=== PATIENT | male | born 1980 | race African-American/Black ===

== ENCOUNTER → 2017-01-20 | Outpatient (CLI) | payer BC ==
[2017-01-20 15:08] LABS: HEMATOCRIT 43.8 % (37.9-51.0); HEMOGLOBIN 14.2 g/dL (13.5-17.0); HGB HCT DIFFERENCE -1.2; MEAN CORPUSCULAR HGB CONC 32.4 g/dL (32.0-36.0); MEAN CORPUSCULAR VOLUME 71 fl (80-97); RED BLOOD COUNT 6.17 10^6/uL (4.35-5.55); RED CELL DISTRIBUTION WIDTH 15.9 % (11.5-14.0); WHITE BLOOD COUNT 8.7 10^3/uL (4.0-10.5)
[2017-01-20 15:24] LABS: ALANINE AMINOTRANSFERASE 22 U/L (21-72); ALBUMIN 4.5 g/dL (3.5-5.0); ALKALINE PHOSPHATASE 89 U/L (38-126); ANION GAP 13 (5-19); ASPARTATE AMINO TRANSFERASE 19 U/L (17-59); BILIRUBIN,TOTAL 0.3 mg/dL (0.2-1.3); BLOOD UREA NITROGEN 11 mg/dL (7-20); CALCIUM 9.6 mg/dL (8.4-10.2); CARBON DIOXIDE 24 mmol/L (22-30); CHLORIDE 106 mmol/L (98-107); CREATININE RESULT 1.08 mg/dL (0.52-1.25); GLUCOSE 84 mg/dL (75-110); POTASSIUM 4.1 mmol/L (3.6-5.0); SODIUM 143.4 mmol/L (137-145); TOTAL PROTEIN 7.3 g/dL (6.3-8.2); TRIGLYCERIDES 328 mg/dL (<150)
[2017-01-20 15:35] LABS: DIRECT LDL 95 mg/dL (<100)
[2017-01-20 15:53] LABS: THYROID STIMULATING HORMONE 0.96 uIU/mL (0.47-4.68)
== END ==
LOC: LAB 14:49
PROVIDERS: ATTEND Psychiatry & Neurology Psychiatry
DX: F31.4 Bipolar disorder, current episode depressed, severe, without psychotic features (principal); Z79.899 Other long term (current) drug therapy
CPT/HCPCS: 36415; 80048; 80076; 82465; 83036; 83721; 84439; 84443; 84478; 85027

== ENCOUNTER 2017-02-02 11:16 | Emergency (ER) | payer BC ==
[2017-02-02 11:55] VITALS: BP 159/103
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
== END 2017-02-02 14:30 | disposition left against medical advice (07) ==
LOC: ER 11:16
DX: Z53.9 Procedure and treatment not carried out, unspecified reason (principal); R21 Rash and other nonspecific skin eruption
CPT/HCPCS: 99281

== ENCOUNTER 2017-08-12 11:19 | Emergency (ER) | payer BC ==
[2017-08-12 11:26] VITALS: BP 144/90
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
--- NOTE | 2017-08-12 12:10 | RADIOLOGY REPORT (SQ) ---
EXAM DESCRIPTION: HAND RIGHT 3 VIEWS COMPLETED DATE/TIME: 08/12/2017 11:57 am REASON FOR STUDY: punching tree COMPARISON: January 2015 EXAM PARAMETERS: NUMBER OF VIEWS: Three views. TECHNIQUE: AP, lateral and oblique radiographic images acquired of the right hand. LIMITATIONS: None. FINDINGS: MINERALIZATION: Normal. BONES: No acute fracture or dislocation. No worrisome bone lesions. JOINTS: No effusions. SOFT TISSUES: No soft tissue swelling. No foreign body. OTHER: No other significant finding. IMPRESSION: NEGATIVE STUDY OF THE RIGHT HAND. NO RADIOGRAPHIC EVIDENCE OF ACUTE INJURY. TECHNICAL DOCUMENTATION: JOB ID: [id number]- All Rights Reserved
== END 2017-08-12 12:17 | disposition home or self-care (01) ==
LOC: ER 11:19
DX: S60.211A Contusion of right wrist, initial encounter (principal); W22.09XA Striking against other stationary object, initial encounter; Y93.75 Activity, martial arts; Y92.009 Unspecified place in unspecified non-institutional (private) residence as the place of occurrence of the external cause; M25.542 Pain in joints of left hand; M25.541 Pain in joints of right hand; F17.200 Nicotine dependence, unspecified, uncomplicated; I10 Essential (primary) hypertension; E11.9 Type 2 diabetes mellitus without complications
CPT/HCPCS: 99283

== ENCOUNTER 2017-10-05 10:17 | Emergency (ER) | payer BC, MEDICAID ==
[2017-10-05 10:26] VITALS: BP 157/95
[2017-10-05] MEDS ORDERED: NORMAL SALINE 1000 ML 1,000 ML IV ONE (10:43)
[2017-10-05] MEDS ORDERED: ONDANSETRON HCL INJ/PF 4 MG/2 ML SDV IV ONE (10:43)
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
[2017-10-05 11:38] LABS: APPEARANCE,URINE SLIGHTLY-CLOUDY; BILIRUBIN,URINE NEGATIVE (NEGATIVE); GLUCOSE, URINE 50 mg/dL (NEGATIVE); KETONES,URINE 80 mg/dL (NEGATIVE); LEUKOCYTE ESTERASE,URINE NEGATIVE (NEGATIVE); NITRITE,URINE NEGATIVE (NEGATIVE); PROTEIN,URINE 100 mg/dL (NEGATIVE); URINE SPECIFIC GRAVITY 1.035; UROBILINOGEN,URINE NEGATIVE mg/dL (<2.0)
[2017-10-05 11:50] LABS: ABSOLUTE LYMPHOCYTES (AUTO) 1.2 10^3/uL (0.5-4.7); ABSOLUTE MONOCYTES (AUTO) 0.5 10^3/uL (0.1-1.4); ABSOLUTE NEUT (AUTO) 8.1 10^3/uL (1.7-8.2); BASOPHILS % (AUTO) 0.4 % (0-2); EOSINOPHILS % (AUTO) 0.1 % (0-6); HEMATOCRIT 48.1 % (37.9-51.0); HEMOGLOBIN 15.4 g/dL (13.5-17.0); HGB HCT DIFFERENCE -1.9; LYMPHOCYTES % (AUTO) 12.5 % (13-45); MEAN CORPUSCULAR HEMOGLOBIN 22.9 pg (27.0-33.4); MEAN CORPUSCULAR VOLUME 72 fl (80-97); MONOCYTES % (AUTO) 4.7 % (3-13); RED BLOOD COUNT 6.72 10^6/uL (4.35-5.55); RED CELL DISTRIBUTION WIDTH 16.5 % (11.5-14.0); SEGMENTED NEUTROPHILS % (AUTO) 82.3 % (42-78); WHITE BLOOD COUNT 9.8 10^3/uL (4.0-10.5)
[2017-10-05 12:27] LABS: ALANINE AMINOTRANSFERASE 29 U/L (21-72); ALBUMIN 5.2 g/dL (3.5-5.0); ALKALINE PHOSPHATASE 107 U/L (38-126); ANION GAP 15 (5-19); ASPARTATE AMINO TRANSFERASE 30 U/L (17-59); BILIRUBIN,DIRECT 0.6 mg/dL (0.0-0.4); BILIRUBIN,TOTAL 0.8 mg/dL (0.2-1.3); BLOOD UREA NITROGEN 15 mg/dL (7-20); CALCIUM 9.8 mg/dL (8.4-10.2); CARBON DIOXIDE 26 mmol/L (22-30); CHLORIDE 103 mmol/L (98-107); CREATININE RESULT 1.03 mg/dL (0.52-1.25); GLUCOSE 138 mg/dL (75-110); LIPASE 365.9 U/L (23-300); SODIUM 144.4 mmol/L (137-145); TOTAL PROTEIN 8.3 g/dL (6.3-8.2)
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
== END 2017-10-05 13:17 | disposition home or self-care (01) ==
LOC: ER 10:17
DX: A04.72 Enterocolitis due to Clostridium difficile, not specified as recurrent (principal); R11.2 Nausea with vomiting, unspecified; R39.198 Other difficulties with micturition; R31.9 Hematuria, unspecified; Z79.899 Other long term (current) drug therapy
CPT/HCPCS: 99283; 96361; 96374; 36415; 87045; 89055; 87205; 83690; 85025; 82272; 80053; 81001; 87493; J2405; J7030

== ENCOUNTER 2017-10-14 08:57 | Emergency (ER) | payer MEDICAID ==
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
[2017-10-14] MEDS ORDERED: MAG HYDROX/AL HYDROX/SIMETH SUSP 30 ML UDCUP PO ONE (10:15)
[2017-10-14] MEDS ORDERED: LIDOCAINE 2% VISCOUS SOLN 20 ML UDCUP PO ONE (10:15)
[2017-10-14] MEDS ORDERED: METOCLOPRAMIDE HCL ORAL SOLN 10 MG/10 ML UDCUP PO ONE (10:15)
[2017-10-14 10:50] LABS: ABSOLUTE LYMPHOCYTES (AUTO) 2.4 10^3/uL (0.5-4.7); ABSOLUTE MONOCYTES (AUTO) 0.8 10^3/uL (0.1-1.4); BASOPHILS % (AUTO) 0.2 % (0-2); EOSINOPHILS % (AUTO) 0.3 % (0-6); HEMATOCRIT 47.9 % (37.9-51.0); HEMOGLOBIN 15.5 g/dL (13.5-17.0); HGB HCT DIFFERENCE -1.4; LYMPHOCYTES % (AUTO) 23.3 % (13-45); MEAN CORPUSCULAR HEMOGLOBIN 23.2 pg (27.0-33.4); MEAN CORPUSCULAR HGB CONC 32.3 g/dL (32.0-36.0); MEAN CORPUSCULAR VOLUME 72 fl (80-97); RED BLOOD COUNT 6.66 10^6/uL (4.35-5.55); RED CELL DISTRIBUTION WIDTH 15.3 % (11.5-14.0); SEGMENTED NEUTROPHILS % (AUTO) 68.2 % (42-78); WHITE BLOOD COUNT 10.3 10^3/uL (4.0-10.5)
[2017-10-14 10:51] LABS: APPEARANCE,URINE SLIGHTLY-CLOUDY; BILIRUBIN,URINE NEGATIVE (NEGATIVE); GLUCOSE, URINE NEGATIVE (NEGATIVE); KETONES,URINE 80 mg/dL (NEGATIVE); LEUKOCYTE ESTERASE,URINE NEGATIVE (NEGATIVE); NITRITE,URINE NEGATIVE (NEGATIVE); PROTEIN,URINE 30 mg/dL (NEGATIVE); URINE SPECIFIC GRAVITY 1.032
[2017-10-14 11:15] LABS: ALANINE AMINOTRANSFERASE 34 U/L (21-72); ALKALINE PHOSPHATASE 84 U/L (38-126); ANION GAP 17 (5-19); ASPARTATE AMINO TRANSFERASE 25 U/L (17-59); BILIRUBIN,DIRECT 0.4 mg/dL (0.0-0.4); BLOOD UREA NITROGEN 14 mg/dL (7-20); CARBON DIOXIDE 27 mmol/L (22-30); CHLORIDE 97 mmol/L (98-107); CREATININE RESULT 0.99 mg/dL (0.52-1.25); GLUCOSE 93 mg/dL (75-110); LIPASE 58.5 U/L (23-300); POTASSIUM 3.8 mmol/L (3.6-5.0); SODIUM 140.5 mmol/L (137-145); TOTAL PROTEIN 7.4 g/dL (6.3-8.2)
[2017-10-14 11:42] VITALS: BP 148/92
--- NOTE | 2017-10-14 13:20 | EKG REPORT ---
SEVERITY:- NORMAL ECG - SINUS RHYTHM : Confirmed by: Edvin Guzman MD 14-Oct-2017 13:19:49
== END 2017-10-14 11:40 | disposition home or self-care (01) ==
LOC: ER 08:57
DX: R10.13 Epigastric pain (principal); R19.7 Diarrhea, unspecified; M79.1 Myalgia; R20.2 Paresthesia of skin; R61 Generalized hyperhidrosis; M54.5 Low back pain; G89.29 Other chronic pain; R07.89 Other chest pain; I10 Essential (primary) hypertension; R68.83 Chills (without fever); R11.0 Nausea; Z91.013 Allergy to seafood
CPT/HCPCS: 93005; 99283; 36415; 83690; 85025; 80053; 81001; 93010; J3490 ×3

== ENCOUNTER 2017-11-21 08:54 | Inpatient (IN) | payer MEDICAID ==
[2017-11-21] MEDS ORDERED: NORMAL SALINE 1000 ML 1,000 ML IV ONE ×2 (09:26→11:12)
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
[2017-11-21] MEDS ORDERED: ACETAMINOPHEN 325 MG TABLET PO ONE (09:58)
[2017-11-21 10:16] LABS: ABSOLUTE BASOPHILS # (AUTO) 0.1 10^3/uL (0.0-0.2); ABSOLUTE MONOCYTES (AUTO) 1.1 10^3/uL (0.1-1.4); ABSOLUTE NEUT (AUTO) 15.4 10^3/uL (1.7-8.2); BASOPHILS % (AUTO) 0.5 % (0-2); HEMATOCRIT 45.4 % (37.9-51.0); HEMOGLOBIN 14.5 g/dL (13.5-17.0); LYMPHOCYTES % (AUTO) 5.7 % (13-45); MEAN CORPUSCULAR HEMOGLOBIN 23.2 pg (27.0-33.4); MEAN CORPUSCULAR HGB CONC 31.9 g/dL (32.0-36.0); MEAN CORPUSCULAR VOLUME 73 fl (80-97); MONOCYTES % (AUTO) 6.1 % (3-13); PLATELET COUNT 188 10^3/uL (150-450); RED BLOOD COUNT 6.23 10^6/uL (4.35-5.55); SEGMENTED NEUTROPHILS % (AUTO) 87.7 % (42-78); TOTAL CELLS COUNTED % (AUTO) 100 %; WHITE BLOOD COUNT 17.6 10^3/uL (4.0-10.5)
[2017-11-21 10:17] LABS: INTERNATIONAL RATION (INR) 0.97; PROTHROMBIN TIME 13.6 SEC (11.4-15.4)
[2017-11-21 10:18] LABS: PARTIAL THROMBOPLASTIN TIME 37.2 SEC (23.5-35.8)
[2017-11-21 10:29] LABS: ALANINE AMINOTRANSFERASE 21 U/L (21-72); ALBUMIN 4.5 g/dL (3.5-5.0); ALKALINE PHOSPHATASE 75 U/L (38-126); ANION GAP 13 (5-19); ASPARTATE AMINO TRANSFERASE 19 U/L (17-59); BILIRUBIN,DIRECT 0.3 mg/dL (0.0-0.4); BILIRUBIN,TOTAL 0.7 mg/dL (0.2-1.3); BLOOD UREA NITROGEN 9 mg/dL (7-20); CALCIUM 9.2 mg/dL (8.4-10.2); CARBON DIOXIDE 22 mmol/L (22-30); CHLORIDE 104 mmol/L (98-107); GLUCOSE 87 mg/dL (75-110); LIPASE 19.6 U/L (23-300); POTASSIUM 3.8 mmol/L (3.6-5.0); SODIUM 139.3 mmol/L (137-145)
[2017-11-21 11:09] LABS: APPEARANCE,URINE CLEAR; BILIRUBIN,URINE NEGATIVE (NEGATIVE); COLOR,URINE YELLOW; GLUCOSE, URINE NEGATIVE (NEGATIVE); KETONES,URINE 80 mg/dL (NEGATIVE); LEUKOCYTE ESTERASE,URINE TRACE (NEGATIVE); NITRITE,URINE NEGATIVE (NEGATIVE); PROTEIN,URINE 100 mg/dL (NEGATIVE); URINE SPECIFIC GRAVITY 1.028
--- NOTE | 2017-11-21 12:09 | RADIOLOGY REPORT (SQ) ---
EXAM DESCRIPTION: CT ABD/PELVIS WITH IV ONLY COMPLETED DATE/TIME: 11/21/2017 11:56 am REASON FOR STUDY: abd/flank pain, diarrhea COMPARISON: 07/07/2015 TECHNIQUE: CT scan of the abdomen and pelvis performed using helical scanning technique with dynamic intravenous contrast injection. No oral contrast. Images reviewed with lung, soft tissue, and bone windows. Reconstructed coronal and sagittal MPR images reviewed. Delayed images for evaluation of the urinary system also acquired. All images stored on PACS. All CT scanners at this facility use dose modulation, iterative reconstruction, and/or weight based d osing when appropriate to reduce radiation dose to as low as reasonably achievable (ALARA). [facility]: Dose Right [facility]: CareDose [facility]: Dose Right [facility]: Teradose 4D [facility]: [employer] CONTRAST TYPE AND DOSE: contrast/concentration: Isovue 370.00 mg/ml; Total Contrast Delivered: 81.0 ml; Total Saline Delivered: 68.0 ml RENAL FUNCTION: None required. The patient is less than 50 years old. RADIATION DOSE: CT Rad equipment meets quality standard of care and radiation dose reduction techniq ues were employed. CTDIvol: 5.2 - 6.7 mGy. DLP: 574 mGy-cm.. LIMITATIONS: None. FINDINGS: LOWER CHEST: No significant findings. No nodules or infiltrates. LIVER: Normal size. No masses. No dilated ducts. SPLEEN: Normal size. No focal lesions. PANCREAS: No masses. No significant calcifications. No adjacent inflammation or peripancreatic fluid collections. Pancreatic duct not dilated. GALLBLADDER: No identified stones by CT criteria. No inflammatory changes to suggest cholecystitis. ADRENAL GLANDS: No significant masses or asymmetry. RIGHT KIDNEY AND URETER: No solid masses. No significant calcifications. No hydronephrosis or hyd roureter. LEFT KIDNEY AND URETER: No solid masses. No significant calcifications. No hydronephrosis or hydr oureter. AORTA AND VESSELS: No aneurysm. No dissection. Renal arteries, SMA, celiac without stenosis. RETROPERITONEUM: No retroperitoneal adenopathy, hemorrhage or masses. BOWEL AND PERITONEAL CAVITY: Diffuse mucosal thickening involving the majority of the colon with asso ciated pericolonic stranding compatible with colitis. Small bowel loops are grossly normal. No obst ruction, pneumatosis, or free air. No abscess. APPENDIX: Normal. PELVIS: No mass. No free fluid. Normal bladder. ABDOMINAL WALL: No masses. No hernias. BONES: No significant or acute findings. OTHER: No other significant finding. IMPRESSION: CT FINDINGS COMPATIBLE WITH PANCOLITIS WHICH MAY BE INFECTIOUS OR INFLAMMATORY. TECHNICAL DOCUMENTATION: JOB ID: [id number] Quality ID # [id number]: Final reports with documentation of one or more dose reduction techniques (e.g., Au tomated exposure control, adjustment of the mA and/or kV according to patient size, use of iterative reconstruction technique) 2010 [employer]- All Rights Reserved
[2017-11-21 12:33] LABS: CHLAM PCR NOT DETECTED (NOT DETECT); GON PCR NOT DETECTED (NOT DETECT)
[2017-11-21] MEDS ORDERED: ONDANSETRON HCL INJ/PF 4 MG/2 ML SDV IV PRN (13:23)
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
[2017-11-21] MEDS: NORMAL SALINE 1000 ML 1,000 ML IV PRN ×2 (14:25→22:56)
[2017-11-21] MEDS: METRONIDAZOLE 500 MG/NS RTU 100 ML IV SCH ×2 (14:26→22:56)
[2017-11-21 14:47] LABS: ANION GAP 14 (5-19); BLOOD UREA NITROGEN 7 mg/dL (7-20); CALCIUM 9.2 mg/dL (8.4-10.2); CARBON DIOXIDE 20 mmol/L (22-30); CHLORIDE 107 mmol/L (98-107); GLUCOSE 83 mg/dL (75-110); POTASSIUM 3.8 mmol/L (3.6-5.0); SODIUM 140.8 mmol/L (137-145)
[2017-11-21] MEDS ORDERED: TAMSULOSIN HCL 0.4 MG CAP.SR.24H PO ONE ×2 (18:06→21:08)
[2017-11-21] MEDS: LACTOBACILLUS ACIDOPHILUS 250 MG TAB PO SCH (18:43)
[2017-11-21] MEDS: TAMSULOSIN HCL 0.4 MG CAP.SR.24H PO SCH (18:43)
[2017-11-21] MEDS: VANCOMYCIN HCL INJ 500 MG VIAL PO SCH ×2 (18:45→23:02)
[2017-11-21] MEDS ORDERED: CLONIDINE HCL 0.1 MG TABLET PO PRN (18:54)
[2017-11-21] MEDS ORDERED: PANTOPRAZOLE SODIUM 40 MG VIAL IV ONE (21:15)
[2017-11-21] MEDS: PANTOPRAZOLE SODIUM 40 MG VIAL IV SCH (22:55)
[2017-11-22] MEDS: VANCOMYCIN HCL INJ 500 MG VIAL PO SCH ×4 (05:35→23:10)
[2017-11-22] MEDS: METRONIDAZOLE 500 MG/NS RTU 100 ML IV SCH ×3 (05:36→22:57)
[2017-11-22 06:08] LABS: ABSOLUTE LYMPHOCYTES (AUTO) 1.2 10^3/uL (0.5-4.7); ABSOLUTE MONOCYTES (AUTO) 0.7 10^3/uL (0.1-1.4); ABSOLUTE NEUT (AUTO) 6.9 10^3/uL (1.7-8.2); BASOPHILS % (AUTO) 0.2 % (0-2); EOSINOPHILS % (AUTO) 0.4 % (0-6); HEMATOCRIT 39.7 % (37.9-51.0); HEMOGLOBIN 12.6 g/dL (13.5-17.0); LYMPHOCYTES % (AUTO) 13.2 % (13-45); MEAN CORPUSCULAR HEMOGLOBIN 23.2 pg (27.0-33.4); MEAN CORPUSCULAR HGB CONC 31.7 g/dL (32.0-36.0); MEAN CORPUSCULAR VOLUME 73 fl (80-97); MONOCYTES % (AUTO) 7.8 % (3-13); PLATELET COUNT 171 10^3/uL (150-450); RED BLOOD COUNT 5.43 10^6/uL (4.35-5.55); RED CELL DISTRIBUTION WIDTH 17.9 % (11.5-14.0); SEGMENTED NEUTROPHILS % (AUTO) 78.4 % (42-78); TOTAL CELLS COUNTED % (AUTO) 100 %; WHITE BLOOD COUNT 8.8 10^3/uL (4.0-10.5)
[2017-11-22 06:41] LABS: PHOSPHORUS 2.7 mg/dL (2.5-4.5)
[2017-11-22] MEDS ORDERED: NORMAL SALINE 1000 ML 1,000 ML IV PRN (08:38)
[2017-11-22] MEDS: PANTOPRAZOLE SODIUM 40 MG VIAL IV SCH ×2 (10:42→22:56)
[2017-11-22] MEDS: LACTOBACILLUS ACIDOPHILUS 250 MG TAB PO SCH ×2 (10:43→18:24)
[2017-11-22] MEDS ORDERED: TAMSULOSIN HCL 0.4 MG CAP.SR.24H PO ONE (18:10)
[2017-11-22] MEDS ORDERED: VANCOMYCIN HCL INJ 500 MG VIAL ONE ×2 (18:11→22:05)
[2017-11-22] MEDS: TAMSULOSIN HCL 0.4 MG CAP.SR.24H PO SCH (18:24)
[2017-11-22] MEDS ORDERED: PANTOPRAZOLE SODIUM 40 MG VIAL IV ONE (22:04)
[2017-11-23] MEDS ORDERED: VANCOMYCIN HCL INJ 500 MG VIAL ONE (05:57)
[2017-11-23] MEDS: METRONIDAZOLE 500 MG/NS RTU 100 ML IV SCH (06:57)
[2017-11-23] MEDS: VANCOMYCIN HCL INJ 500 MG VIAL PO SCH (07:09)
[2017-11-23 09:42] VITALS: BP 144/86
--- NOTE | 2017-11-23 09:49 | PSYCHOLOGICAL NOTE ---
Psych Note - Psych Note Psych Note: Reason for consult: History of Bipolar Disorder/Hearing voices Consents given: Anna, , at bedside Patient stated he has not taken his psychiatric medications since August or September. He indicated he had not filled them due to financial issues and problems with his insurance and Disability. Patient reported he is on Temazepam , Klonopin, Trileptal, Abillify, Benzotropine, Hydroxyzine, Prazosin and Seroquel. Patient reported he smokes marijuana when he has it and more so if he does not have his psychiatric medications. Patient stated he hasnt used marijuana in approximately three weeks. He stated marijuana calms him down and makes the voices get quieter. Patient stated his psychiatric medications make the voices go away for periods of time and make them into a whisper, very faint when he does hear them. Patient stated without his medications he is quick to get angry and will sometimes see things. Patient reported he has an established provider in the community and can return there for further treatment. Patient was alert and oriented to person, place, time and circumstance. Mood was euthymic with congruent affect. Patient denied current suicidal/homicidal ideation, intent or plan. He did not appear to be responding to internal stimuli as evidenced by appropriate eye contact, maintaining conversation and staying on topic. No delusions or psychosis noted. Thought processes were organized and linear. Conversational speech was within normal limits for rate, tone and prosody. Intellectual abilities were estimated in the average range. Insight, judgment and impulse control were fair. 1. 296.7 (F31.9) Bipolar I Disorder, by patient report Impression/Plan: Patient is psychiatrically clear. He does not meet [place] G.S 122C IVC criteria. Patient denied suicidal/homicidal ideation, intent or plan. Patient is not considered a danger to himself or others at this time. No delusions or psychosis were observed, although patient endorses auditory hallucinations. Patient has a support system in place, with his and children with whom he shares a residence. Patient was encouraged to follow up with his established provider in the community, [facility], to restart appropriate medications once he is discharged from the hospital. No medication recommendations are made at this time due to the length of time the patient has been off the medications and the estimated hospital discharge of 24-48 hours. It is recommended that if the patient is not discharged in the estimated timeframe another consult may be ordered for this patient. Consulted with Dr. Crump regarding the care and management of this patient.
--- NOTE | 2017-11-23 13:05 | PDOC PROGRESS REPORT ---
Subjective Progress Note for:: 11/22/17 Subjective:: Patient feeling good today. Patient still having some loose stools but with more formed. Patient would like his diet advanced. Reason For Visit: C DIFF COLITIS,DIARRHEA,LEUKOCYSTOSIS Physical Exam Vital Signs: Selected Entries 11/22/17 08:28 Temperature 98.3 F Temperature Oral Source Pulse Rate 77 Respiratory 18 Rate Blood Pressure 144/90 H Blood Pressure 108 Mean BP Location Right Arm BP Position Supine O2 Sat by Pulse 100 Oximetry Oxygen Delivery Room Air Method General appearance: PRESENT: no acute distress, well-developed, well-nourished Head exam: PRESENT: atraumatic, normocephalic Eye exam: PRESENT: conjunctiva pink, EOMI, PERRLA. ABSENT: scleral icterus Ear exam: PRESENT: normal external ear exam Mouth exam: PRESENT: moist, tongue midline Neck exam: ABSENT: carotid bruit, JVD, lymphadenopathy, thyromegaly Respiratory exam: PRESENT: clear to auscultation ludmila. ABSENT: rales, rhonchi, wheezes Cardiovascular exam: PRESENT: RRR. ABSENT: diastolic murmur, rubs, systolic murmur Pulses: PRESENT: normal dorsalis pedis pul Vascular exam: PRESENT: normal capillary refill GI/Abdominal exam: PRESENT: normal bowel sounds, soft. ABSENT: distended, guarding, mass, organolmegaly, rebound, tenderness Rectal exam: PRESENT: deferred Extremities exam: PRESENT: full ROM. ABSENT: calf tenderness, clubbing, pedal edema Neurological exam: PRESENT: alert, awake, oriented to person, oriented to place , oriented to time, oriented to situation, CN II-XII grossly intact. ABSENT: motor sensory deficit Psychiatric exam: PRESENT: appropriate affect, normal mood. ABSENT: homicidal ideation, suicidal ideation Skin exam: PRESENT: dry, intact, warm. ABSENT: cyanosis, rash Results Laboratory Results: 11/22/17 05:57 11/21/17 14:00 Impressions: Abdomen/Pelvis CT 11/21/17 11:12 IMPRESSION: CT FINDINGS COMPATIBLE WITH PANCOLITIS WHICH MAY BE INFECTIOUS OR INFLAMMATORY. Assessment & Plan - Diagnosis (1) Clostridium difficile diarrhea Is this a current diagnosis for this admission?: Yes Plan: Patient with C. difficile colitis. CT scan showing pancolitis most likely due to C. difficile. Continue Flagyl IV 500 mg 3 times daily along with oral vancomycin 125 p.o. every 6. Continue probiotic. Continue hydration. Patient in contact isolation. (2) Blood in stool Is this a current diagnosis for this admission?: Yes Plan: Likely due to C. difficile colitis with pancolitis. Patient hemoglobin is stable. (3) History of schizophrenia Is this a current diagnosis for this admission?: Yes Plan: She was on multiple medications in the past. Patient states he has not taken them in any medication since August. Patient states he was doing fine until recently where he started hearing voices. Patient evaluated by psychology who recommended not restarting any of the medication. Patient should follow-up with his outside mental health provider prior to resuming any of his medication since he has been off of them for so long. (4) Abdominal pain Qualifiers: Abdominal location: generalized Qualified Code(s): R10.84 - Generalized abdominal pain Plan: Improving. Due to C. difficile colitis. Patient being treated with vancomycin and Flagyl. Also on PPI. (5) Pancolitis Is this a current diagnosis for this admission?: Yes Plan: Due to C. difficile. Patient being treated for his C. difficile. (6) Hematuria Qualifiers: Hematuria type: other microscopic Qualified Code(s): R31.29 - Other microscopic hematuria; R31.2 - Other microscopic hematuria Is this a current diagnosis for this admission?: Yes Plan: Resolved. No growth on urine culture. (7) Leukocytosis Is this a current diagnosis for this admission?: Yes Plan: Resolved. Leukocytosis secondary to C. difficile colitis versus hemoconcentration for dehydration resulting from diarrhea. Continue Flagyl and vancomycin for C. difficile colitis. - Time Time Spent with patient: Less than 15 minutes Anticipated discharge: Home with Homehealth Within: within 24 hours - Inpatient Certification Medical Necessity: Need For IV Fluids, Need for IV Antibiotics
--- NOTE | 2017-11-23 13:10 | PDOC DISCHARGE SUMMARY ---
General - Admit/Disc Date/PCP Admission Date/Primary Care Provider: 11/21/17 13:48 Discharge Date: 11/23/17 - Discharge Diagnosis (1) Clostridium difficile diarrhea Is this a current diagnosis for this admission?: Yes (2) Blood in stool Is this a current diagnosis for this admission?: Yes (3) History of schizophrenia Is this a current diagnosis for this admission?: Yes (5) Pancolitis Is this a current diagnosis for this admission?: Yes (6) Hematuria Is this a current diagnosis for this admission?: Yes (7) Leukocytosis Is this a current diagnosis for this admission?: Yes - Additional Information Resuscitation Status: Full Code Discharge Diet: As Tolerated Discharge Activity: Activity As Tolerated Prescriptions: Metronidazole [Flagyl 500 mg Tablet] 500 mg PO TID #42 tablet Home Medications: Metronidazole [Flagyl 500 mg Tablet] 500 mg PO TID #42 tablet 11/23/17 History of Present Illness History of Present Illness: BONILLA GREY III is a 37 year old male with a history of bipolar schizophrenia presenting with 4 days abdominal pain and diarrhea. Patient states that he was treated for C. difficile in September. Stated he had gotten better after completing his antibiotic course with Flagyl. Patient states 4 days ago he started having abdominal pain and diarrhea. Patient was not having any vomiting however was having decreased p.o. intake stating he has no appetite. Patient stated he went to the bathroom and noticed that there was blood in his stool. Patient states that the blood in his stool was dark in color. Patient also noted there was blood in his urine. Patient denied any dysuria however he stated that he feels as if he has to force himself to urinate. He states this is the first time he has had blood in his stools and blood in his urine. Patient denies taking any Motrin, aspirin or Goody powders. Patient blew his nose and noticed that he was bleeding from his nose also. This is not the first time patient has had bleeding from his nose. Denies any family history of Crohn's disease or ulcerative colitis. Patient called EMS because he was concerned. Patient states that for his bipolar schizophrenia he was on medication off until August when he ran out. Patient states he felt badly in September thinking that he may have been going to withdrawal as one of his psychiatric medications with Klonopin. Patient states that he was doing well without them until recently when he started hearing voices. Patient is uncertain as to which psychiatric medications he takes. ED patient was noted to have leukocytosis and a positive C. difficile. Patient has CT abdomen done which showed pancolitis. Hospitalist was called to admit patient for C. difficile colitis with leukocytosis. Original HPI was dictated by myself Dr. Joie Marley. Please refer to my H& P for further details. Hospital Course Hospital Course: She was admitted for C. difficile pancolitis with diarrhea with intermittent melena. Patient was recently treated for C. difficile colitis however it appears as if it was not completely treated. Patient will return to the ED with profuse diarrhea leukocytosis and low-grade temp. Patient was started on oral vancomycin and IV Flagyl. Patient was also hydrated aggressively. The following day leukocytosis was resolved. Patient also had improvement in his abdominal discomfort. Patient diet was advanced from liquid to full to soft diet. Patient tolerated diet well however did not approve of food. Patient only had one bowel movement that was formed the day prior to discharge. Patient was discharged home to continue Flagyl 500 3 times daily for 14 days. Patient was also evaluated by urology for his schizophrenia. Patient had not been on any medications since August. Due to the amount of medications and the doses it was advised that patient return to his outside mental health provider and have medication restarted as appropriate. It was also noted to have elevated blood pressures while in hospital however patient was given fluid boluses along with continuous fluids for his dehydration and this could have resulted in his elevated blood pressure. Patient blood pressure should be followed up as outpatient and treatment should be initiated if needed. Physical Exam Vital Signs: Temp Pulse Resp BP Pulse Ox 98.2 F 80 18 144/86 H 100 11/23/17 09:39 11/23/17 09:39 11/23/17 09:39 11/23/17 09:39 11/23/17 09:39 Intake & Output 11/22/17 11/23/17 11/24/17 06:59 06:59 06:59 Intake Total 2290 Balance 2290 Weight 74.45 kg 74.453 kg General appearance: PRESENT: no acute distress, well-developed, well-nourished Head exam: PRESENT: atraumatic, normocephalic Eye exam: PRESENT: conjunctiva pink, EOMI, PERRLA. ABSENT: scleral icterus Ear exam: PRESENT: normal external ear exam Mouth exam: PRESENT: moist, tongue midline Neck exam: ABSENT: carotid bruit, JVD, lymphadenopathy, thyromegaly Respiratory exam: PRESENT: clear to auscultation ludmila. ABSENT: rales, rhonchi, wheezes Cardiovascular exam: PRESENT: RRR. ABSENT: diastolic murmur, rubs, systolic murmur Pulses: PRESENT: normal dorsalis pedis pul Vascular exam: PRESENT: normal capillary refill GI/Abdominal exam: PRESENT: normal bowel sounds, soft. ABSENT: distended, guarding, mass, organolmegaly, rebound, tenderness Rectal exam: PRESENT: deferred Extremities exam: PRESENT: full ROM. ABSENT: calf tenderness, clubbing, pedal edema Neurological exam: PRESENT: alert, awake, oriented to person, oriented to place , oriented to time, oriented to situation, CN II-XII grossly intact. ABSENT: motor sensory deficit Psychiatric exam: PRESENT: appropriate affect, normal mood. ABSENT: homicidal ideation, suicidal ideation Skin exam: PRESENT: dry, intact, warm. ABSENT: cyanosis, rash Results Laboratory Results: 11/22/17 05:57 11/21/17 14:00 Impressions: Abdomen/Pelvis CT 11/21/17 11:12 IMPRESSION: CT FINDINGS COMPATIBLE WITH PANCOLITIS WHICH MAY BE INFECTIOUS OR INFLAMMATORY. Qualifiers PATEINT BEING DISCHARGED WITH ANY OF THE FOLLOWING DIAGNOSIS?: No Plan Time Spent: Greater than 30 Minutes
== END 2017-11-23 10:25 | disposition home or self-care (01) | DRG 372 ==
LOC: ER 08:54 → EH 13:48 → 2S 17:50
PROVIDERS: ADMIT Pediatrics; ATTEND Pediatrics
DX: A04.72 Enterocolitis due to Clostridium difficile, not specified as recurrent (principal); K51.00 Ulcerative (chronic) pancolitis without complications; K92.1 Melena; F12.10 Cannabis abuse, uncomplicated; I10 Essential (primary) hypertension; F31.9 Bipolar disorder, unspecified; F60.2 Antisocial personality disorder; F20.9 Schizophrenia, unspecified; R31.29 Other microscopic hematuria; D72.829 Elevated white blood cell count, unspecified
CPT/HCPCS: 36415; 74177; 80048; 80053; 81001; 82272; 83690; 83735; 84100; 85025; 85610; 85730; 87040; 87045; 87086; 87205; 87491; 87493; 87591; 89055; 96360; 96361; 99285; J3370; J3490; J7030; S0164

== ENCOUNTER 2018-03-08 11:24 | Day surgery (SDC) | payer MEDICAID ==
[~2018-03-08 11:24] MED LIST: PROPOFOL INJ 200 MG/20 ML VIAL IV ONE
[2018-03-08 13:56] VITALS: BP 129/89
--- NOTE | 2018-03-08 14:35 | Operative Report ---
Operative Report DATE OF SURGERY: 03/08/18 Operative Report: The risks, benefits and alternatives of the procedure including risks of bleeding, perforation requiring surgery are explained to the patient in detail and informed consent was obtained. The patient is brought back to the endoscopy suite and placed in the left, lateral decubital position. Timeout was called. Propofol medications administered. A rectal examination is done which did not reveal any masses, tears or fissures. An Olympus videoscope was inserted into the patient's rectum. It is then carefully advanced all the way to the cecum. The cecum is identified by the usual anatomical landmarks including the ileocecal valve as well as the appendiceal office. Photodocumentation is obtained. The scope was then sequentially pulled back via the various segments of the colon including the ascending colon, hepatic flexure, transverse colon, splenic flexure, descending colon and finally into the rectosigmoid portions of the colon. Retroflexion maneuvers performed. PREOPERATIVE DIAGNOSIS: Patient with previously treated Clostridium difficile infection. Noted to have abnormal findings on CT scan to suggest possible colitis. POSTOPERATIVE DIAGNOSIS: Mild right-sided colon inflammation status post biopsy OPERATION: Colonoscopy with biopsy SURGEON: MARCY SANDERSON ANESTHESIA: LMAC TISSUE REMOVED OR ALTERED: As noted above. COMPLICATIONS: None. ESTIMATED BLOOD LOSS: None. INTRAOPERATIVE FINDINGS: As noted above. PROCEDURE: Patient tolerated the procedure well. No immediate postprocedure complications are noted. Patient discharged in good condition. Discharge date 03/08/2018. Discharge diet: Regular. Discharge activity: Regular. 2-3 week follow-up to discuss findings. Patient is instructed call the office or proceed to the emergency room should there be any further problems or questions. We will wait on pathology.
== END 2018-03-08 13:50 | disposition home or self-care (01) ==
LOC: END 11:24
PROVIDERS: ATTEND Internal Medicine Gastroenterology
PROC: 0DBF8ZX Excision of Right Large Intestine, Via Natural or Artificial Opening Endoscopic, Diagnostic (ICD-10-PCS; principal; 2018-03-08 13:00)
DX: K52.9 Noninfective gastroenteritis and colitis, unspecified (principal); I10 Essential (primary) hypertension; F17.210 Nicotine dependence, cigarettes, uncomplicated; F31.9 Bipolar disorder, unspecified; F20.9 Schizophrenia, unspecified; Z79.899 Other long term (current) drug therapy
CPT/HCPCS: 45380; 88305 ×2; J2704; 811

== ENCOUNTER 2018-04-04 01:44 | Emergency (ER) | payer MEDICAID ==
[2018-04-04] MEDS ORDERED: NORMAL SALINE 1000 ML 1,000 ML IV ONE (02:19)
[2018-04-04 02:39] LABS: ABSOLUTE EOSINOPHILS # (AUTO) 0.1 10^3/uL (0.0-0.6); ABSOLUTE LYMPHOCYTES (AUTO) 2.6 10^3/uL (0.5-4.7); ABSOLUTE MONOCYTES (AUTO) 0.4 10^3/uL (0.1-1.4); ABSOLUTE NEUT (AUTO) 3.7 10^3/uL (1.7-8.2); BASOPHILS % (AUTO) 0.5 % (0-2); EOSINOPHILS % (AUTO) 1.2 % (0-6); HEMATOCRIT 43.4 % (37.9-51.0); HEMOGLOBIN 14.1 g/dL (13.5-17.0); LYMPHOCYTES % (AUTO) 37.9 % (13-45); MEAN CORPUSCULAR HGB CONC 32.6 g/dL (32.0-36.0); MEAN CORPUSCULAR VOLUME 74 fl (80-97); MONOCYTES % (AUTO) 6.1 % (3-13); PLATELET COUNT 188 10^3/uL (150-450); RED BLOOD COUNT 5.89 10^6/uL (4.35-5.55); RED CELL DISTRIBUTION WIDTH 15.5 % (11.5-14.0); SEGMENTED NEUTROPHILS % (AUTO) 54.3 % (42-78); TOTAL CELLS COUNTED % (AUTO) 100 %; WHITE BLOOD COUNT 6.8 10^3/uL (4.0-10.5)
--- NOTE | 2018-04-04 02:50 | RADIOLOGY REPORT (SQ) ---
EXAM DESCRIPTION: Single view of the chest CLINICAL HISTORY: cp, dizziness, sob COMPARISON: None. FINDINGS: Single frontal view of the chest. The cardiomediastinal silhouette has normal size and contour. No consolidation, pneumothorax, or pleural effusion. No displaced rib fractures identified. Upper abdominal soft tissues are unremarkable. Bilateral piercings overlie the chest. Leads overlie the chest. IMPRESSION: 1. No acute pulmonary process identified.
[2018-04-04 03:12] LABS: ALANINE AMINOTRANSFERASE 34 U/L (21-72); ALBUMIN 4.2 g/dL (3.5-5.0); ALKALINE PHOSPHATASE 70 U/L (38-126); ANION GAP 13 (5-19); ASPARTATE AMINO TRANSFERASE 21 U/L (17-59); BILIRUBIN,DIRECT 0.3 mg/dL (0.0-0.4); BILIRUBIN,TOTAL 0.5 mg/dL (0.2-1.3); BLOOD UREA NITROGEN 11 mg/dL (7-20); CALCIUM 9.7 mg/dL (8.4-10.2); CARBON DIOXIDE 25 mmol/L (22-30); CHLORIDE 107 mmol/L (98-107); CREATINE KINASE 121 U/L (55-170); GLUCOSE 104 mg/dL (75-110); LIPASE 43.2 U/L (23-300); SODIUM 144.8 mmol/L (137-145); TOTAL PROTEIN 6.5 g/dL (6.3-8.2)
[2018-04-04 03:20] LABS: CREATINE KINASE MB 0.29 ng/mL (<4.55)
[2018-04-04 03:26] LABS: TROPONIN I < 0.012 ng/mL
[2018-04-04 04:43] LABS: APPEARANCE,URINE CLEAR; BILIRUBIN,URINE NEGATIVE (NEGATIVE); CALCIUM OXALATE CRYSTALS,URINE MANY /HPF; COLOR,URINE YELLOW; GLUCOSE, URINE NEGATIVE (NEGATIVE); KETONES,URINE NEGATIVE (NEGATIVE); LEUKOCYTE ESTERASE,URINE NEGATIVE (NEGATIVE); NITRITE,URINE NEGATIVE (NEGATIVE); PROTEIN,URINE NEGATIVE (NEGATIVE); URINE SPECIFIC GRAVITY 1.024
[2018-04-04 05:00] LABS: URINE AMPHETAMINES SCREEN NEGATIVE; URINE BARBITURATES SCREEN NEGATIVE; URINE BENZODIAZEPINES SCREEN NEGATIVE; URINE COCAINE SCREEN NEGATIVE; URINE MARIJUANA (THC) SCREEN UNCONFIRMED POSITIVE; URINE METHADONE SCREEN NEGATIVE; URINE PHENCYCLIDINE SCREEN NEGATIVE
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
[2018-04-04 06:20] VITALS: BP 128/87
--- NOTE | 2018-04-04 16:17 | EKG REPORT ---
SEVERITY:- BORDERLINE ECG - SINUS RHYTHM BORDERLINE T WAVE ABNORMALITIES : Confirmed by: Calixto Marlow 04-Apr-2018 16:16:28
== END 2018-04-04 06:22 | disposition home or self-care (01) ==
LOC: ER 01:44
DX: R42 Dizziness and giddiness (principal); R00.2 Palpitations; R07.9 Chest pain, unspecified; R06.02 Shortness of breath; I10 Essential (primary) hypertension
CPT/HCPCS: 93005; 99285; 96360; 36415; 82553; 82550; 83690; 83735; 85025; 80053; 81001; 84484; 80307; 71045; 93010; J7030

== ENCOUNTER → 2018-09-18 | Outpatient (CLI) | payer MEDICAID ==
[2018-09-18 10:24] LABS: HEMATOCRIT 40.9 % (37.9-51.0); HEMOGLOBIN 13.3 g/dL (13.5-17.0); MEAN CORPUSCULAR HEMOGLOBIN 25.1 pg (27.0-33.4); MEAN CORPUSCULAR HGB CONC 32.6 g/dL (32.0-36.0); MEAN CORPUSCULAR VOLUME 77 fl (80-97); PLATELET COUNT 166 10^3/uL (150-450); RED BLOOD COUNT 5.31 10^6/uL (4.35-5.55); RED CELL DISTRIBUTION WIDTH 16.7 % (11.5-14.0); WHITE BLOOD COUNT 7.6 10^3/uL (4.0-10.5)
[2018-09-18 10:44] LABS: ALANINE AMINOTRANSFERASE 19 U/L (21-72); ALBUMIN 4.2 g/dL (3.5-5.0); ALKALINE PHOSPHATASE 77 U/L (38-126); ANION GAP 12 (5-19); ASPARTATE AMINO TRANSFERASE 19 U/L (17-59); BILIRUBIN,DIRECT 0.1 mg/dL (0.0-0.4); BILIRUBIN,TOTAL 0.3 mg/dL (0.2-1.3); BLOOD UREA NITROGEN 12 mg/dL (7-20); CALCIUM 9.5 mg/dL (8.4-10.2); CARBON DIOXIDE 28 mmol/L (22-30); CHLORIDE 105 mmol/L (98-107); CHOLESTEROL 137.06 mg/dL (0-200); GLUCOSE 87 mg/dL (75-110); POTASSIUM 5.1 mmol/L (3.6-5.0); SODIUM 144.5 mmol/L (137-145); TOTAL PROTEIN 6.5 g/dL (6.3-8.2); TRIGLYCERIDES 83 mg/dL (<150)
== END ==
LOC: OD 08:55
PROVIDERS: ATTEND Psychiatry & Neurology Psychiatry
DX: F31.4 Bipolar disorder, current episode depressed, severe, without psychotic features (principal); Z79.899 Other long term (current) drug therapy
CPT/HCPCS: 36415; 80048; 80076; 82465; 83036; 84478; 85027

== ENCOUNTER → 2018-09-29 | Outpatient (CLI) | payer MEDICAID ==
[2018-09-29 12:05] LABS: HEMATOCRIT 44.4 % (37.9-51.0); HEMOGLOBIN 14.3 g/dL (13.5-17.0); MEAN CORPUSCULAR HEMOGLOBIN 24.9 pg (27.0-33.4); MEAN CORPUSCULAR HGB CONC 32.2 g/dL (32.0-36.0); MEAN CORPUSCULAR VOLUME 77 fl (80-97); PLATELET COUNT 206 10^3/uL (150-450); RED BLOOD COUNT 5.75 10^6/uL (4.35-5.55); RED CELL DISTRIBUTION WIDTH 16.8 % (11.5-14.0)
[2018-09-29 12:26] LABS: ALANINE AMINOTRANSFERASE 12 U/L (21-72); ALBUMIN 4.6 g/dL (3.5-5.0); ALKALINE PHOSPHATASE 68 U/L (38-126); ANION GAP 12 (5-19); ASPARTATE AMINO TRANSFERASE 20 U/L (17-59); BILIRUBIN,DIRECT 0.1 mg/dL (0.0-0.4); BILIRUBIN,TOTAL 0.3 mg/dL (0.2-1.3); BLOOD UREA NITROGEN 11 mg/dL (7-20); CALCIUM 9.5 mg/dL (8.4-10.2); CARBON DIOXIDE 27 mmol/L (22-30); CHLORIDE 105 mmol/L (98-107); GLUCOSE 84 mg/dL (75-110); POTASSIUM 4.9 mmol/L (3.6-5.0); SODIUM 144.1 mmol/L (137-145); TOTAL PROTEIN 6.7 g/dL (6.3-8.2)
== END ==
LOC: OD 11:13
PROVIDERS: ATTEND Psychiatry & Neurology Psychiatry
DX: F31.4 Bipolar disorder, current episode depressed, severe, without psychotic features (principal)
CPT/HCPCS: 36415; 80048; 80076; 80156; 85027

== ENCOUNTER 2019-02-02 16:37 | Emergency (ER) | payer MEDICAID ==
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
--- NOTE | 2019-02-02 17:43 | RADIOLOGY REPORT (SQ) ---
EXAM DESCRIPTION: FOOT LEFT COMPLETE COMPLETED DATE/TIME: 02/02/2019 5:39 pm REASON FOR STUDY: Pain at base of fourth and fifth toes COMPARISON: None. NUMBER OF VIEWS: Three views. TECHNIQUE: AP, lateral and oblique radiographic images acquired of the left foot. LIMITATIONS: None. FINDINGS: MINERALIZATION: Normal. BONES: No acute fracture or dislocation. No worrisome bone lesions. JOINTS: No effusions. SOFT TISSUES: No soft tissue swelling. No foreign body. OTHER: No other significant finding. IMPRESSION: NEGATIVE STUDY OF THE LEFT FOOT. NO RADIOGRAPHIC EVIDENCE OF ACUTE INJURY. TECHNICAL DOCUMENTATION: JOB ID: [id number] [employer]- All Rights Reserved Reading location - IP/workstation name: [email or web address]
[2019-02-02 17:47] LABS: ABSOLUTE EOSINOPHILS # (AUTO) 0.1 10^3/uL (0.0-0.6); ABSOLUTE LYMPHOCYTES (AUTO) 2.8 10^3/uL (0.5-4.7); ABSOLUTE MONOCYTES (AUTO) 0.8 10^3/uL (0.1-1.4); ABSOLUTE NEUT (AUTO) 4.9 10^3/uL (1.7-8.2); BASOPHILS % (AUTO) 0.4 % (0-2); EOSINOPHILS % (AUTO) 1.1 % (0-6); HEMATOCRIT 41.4 % (37.9-51.0); HEMOGLOBIN 13.4 g/dL (13.5-17.0); LYMPHOCYTES % (AUTO) 32.9 % (13-45); MEAN CORPUSCULAR HEMOGLOBIN 25.1 pg (27.0-33.4); MEAN CORPUSCULAR HGB CONC 32.4 g/dL (32.0-36.0); MEAN CORPUSCULAR VOLUME 77 fl (80-97); PLATELET COUNT 218 10^3/uL (150-450); RED BLOOD COUNT 5.35 10^6/uL (4.35-5.55); SEGMENTED NEUTROPHILS % (AUTO) 56.6 % (42-78); TOTAL CELLS COUNTED % (AUTO) 100 %; WHITE BLOOD COUNT 8.6 10^3/uL (4.0-10.5)
[2019-02-02 18:01] LABS: ALANINE AMINOTRANSFERASE 17 U/L (21-72); ALBUMIN 4.2 g/dL (3.5-5.0); ALKALINE PHOSPHATASE 96 U/L (38-126); ANION GAP 7 (5-19); ASPARTATE AMINO TRANSFERASE 18 U/L (17-59); BILIRUBIN,DIRECT 0.3 mg/dL (0.0-0.4); BILIRUBIN,TOTAL 0.5 mg/dL (0.2-1.3); BLOOD UREA NITROGEN 11 mg/dL (7-20); CALCIUM 9.9 mg/dL (8.4-10.2); CARBON DIOXIDE 31 mmol/L (22-30); CHLORIDE 102 mmol/L (98-107); SODIUM 140.1 mmol/L (137-145); TOTAL PROTEIN 6.6 g/dL (6.3-8.2)
[2019-02-02 18:06] LABS: GLUCOSE 69 mg/dL (75-110)
[2019-02-02 18:10] LABS: URINE AMPHETAMINES SCREEN NEGATIVE; URINE BARBITURATES SCREEN NEGATIVE; URINE BENZODIAZEPINES SCREEN NEGATIVE; URINE COCAINE SCREEN UNCONFIRMED POSITIVE; URINE MARIJUANA (THC) SCREEN UNCONFIRMED POSITIVE; URINE METHADONE SCREEN NEGATIVE; URINE PHENCYCLIDINE SCREEN NEGATIVE
[2019-02-02 18:11] LABS: AMORPHOUS SEDIMENT,URINE TRACE /HPF; APPEARANCE,URINE SLIGHTLY-CLOUDY; BILIRUBIN,URINE NEGATIVE (NEGATIVE); CALCIUM OXALATE CRYSTALS,URINE FEW /HPF; COLOR,URINE AMBER; GLUCOSE, URINE NEGATIVE (NEGATIVE); KETONES,URINE TRACE mg/dL (NEGATIVE); LEUKOCYTE ESTERASE,URINE TRACE (NEGATIVE); NITRITE,URINE NEGATIVE (NEGATIVE); PROTEIN,URINE NEGATIVE (NEGATIVE); URINE SPECIFIC GRAVITY 1.028
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
[2019-02-02 19:51] VITALS: BP 130/68
--- NOTE | 2019-02-02 23:21 | EKG REPORT ---
SEVERITY:- NORMAL ECG - SINUS RHYTHM : Confirmed by: Calixto Marlow 02-Feb-2019 23:20:33
== END 2019-02-02 19:51 | disposition home or self-care (01) ==
LOC: ER 16:37
DX: M77.42 Metatarsalgia, left foot (principal); L50.9 Urticaria, unspecified; R00.2 Palpitations; F14.10 Cocaine abuse, uncomplicated; F12.10 Cannabis abuse, uncomplicated; I10 Essential (primary) hypertension; Z87.892 Personal history of anaphylaxis; Z91.013 Allergy to seafood
CPT/HCPCS: 36415; 80053; 80307; 81001; 85025; 93005; 93010; 99285

== ENCOUNTER → 2019-03-11 | Outpatient (CLI) | payer MEDICAID ==
--- NOTE | 2019-03-11 13:40 | RADIOLOGY REPORT (SQ) ---
EXAM DESCRIPTION: CT ABD/PELVIS WITH IV ONLY COMPLETED DATE/TIME: 03/11/2019 1:22 pm REASON FOR STUDY: WEIGHT LOSS, ABDOMINAL PAIN, EARLY SATIE R63.4 ABNORMAL WEIGHT LOSS R10.9 UNSPEC IFIED ABDOMINAL PAIN R68.81 EARLY SATIETY COMPARISON: 11/21/2017 TECHNIQUE: CT scan of the abdomen and pelvis performed using helical scanning technique with dynamic intravenous contrast injection. No oral contrast. Images reviewed with lung, soft tissue, and bone windows. Reconstructed coronal and sagittal MPR images reviewed. Delayed images for evaluation of the urinary system also acquired. All images stored on PACS. All CT scanners at this facility use dose modulation, iterative reconstruction, and/or weight based d osing when appropriate to reduce radiation dose to as low as reasonably achievable (ALARA). [facility]: Dose Right [facility]: CareDose [facility]: Dose Right [facility]: Teradose 4D [facility]: Pocket Tales CONTRAST TYPE AND DOSE: contrast/concentration: Isovue 350.00 mg/ml; Total Contrast Delivered: 81.0 ml; Total Saline Delivered: 68.0 ml RENAL FUNCTION: Creatinine 0.9 RADIATION DOSE: CT Rad equipment meets quality standard of care and radiation dose reduction techniq ues were employed. CTDIvol: 3.6 - 4.0 mGy. DLP: 376 mGy-cm.. LIMITATIONS: None. FINDINGS: LOWER CHEST: No significant findings. No nodules or infiltrates. LIVER: Normal size. No masses. No dilated ducts. SPLEEN: Normal size. No focal lesions. PANCREAS: No masses. No significant calcifications. No adjacent inflammation or peripancreatic fluid collections. Pancreatic duct not dilated. GALLBLADDER: No identified stones by CT criteria. No inflammatory changes to suggest cholecystitis. ADRENAL GLANDS: No significant masses or asymmetry. RIGHT KIDNEY AND URETER: No solid masses. No significant calcifications. No hydronephrosis or hyd roureter. LEFT KIDNEY AND URETER: No solid masses. No significant calcifications. No hydronephrosis or hydr oureter. AORTA AND VESSELS: No aneurysm. No dissection. Renal arteries, SMA, celiac without stenosis. RETROPERITONEUM: No retroperitoneal adenopathy, hemorrhage or masses. BOWEL AND PERITONEAL CAVITY: No masses or inflammatory changes. No free fluid or peritoneal masses. APPENDIX: Normal. PELVIS: No mass. No free fluid. Normal bladder. ABDOMINAL WALL: No masses. No hernias. BONES: No significant or acute findings. OTHER: No other significant finding. IMPRESSION: NO SIGNIFICANT OR ACUTE FINDING IN THE ABDOMEN OR PELVIS ON CT SCAN WITH IV CONTRAST. TECHNICAL DOCUMENTATION: JOB ID: [id number] Quality ID # [id number]: Final reports with documentation of one or more dose reduction techniques (e.g., Au tomated exposure control, adjustment of the mA and/or kV according to patient size, use of iterative reconstruction technique) 2010 [employer]- All Rights Reserved Reading location - IP/workstation name: [email or web address]
== END ==
LOC: RAD 12:34
PROVIDERS: ATTEND Internal Medicine Gastroenterology
DX: R63.4 Abnormal weight loss (principal); R10.9 Unspecified abdominal pain; R68.81 Early satiety
CPT/HCPCS: 74177; 82565

== ENCOUNTER 2019-03-16 08:18 | Day surgery (SDC) | payer MEDICAID ==
[2019-03-16] MEDS ORDERED: PROPOFOL INJ 200 MG/20 ML VIAL IV ONE (11:38)
[2019-03-16] MEDS ORDERED: ONDANSETRON HCL INJ/PF 4 MG/2 ML SDV IV PRN (12:08)
[2019-03-16] MEDS ORDERED: FENTANYL CITRATE INJ/PF 100 MCG/2 ML AMPUL IV PRN ×3 (12:08)
--- NOTE | 2019-03-16 12:47 | Operative Report ---
Operative Report DATE OF SURGERY: 03/16/19 Operative Report: The risks benefits and alternatives of the procedure explained to the patient in detail and informed consent is obtained.A GIF Olympus video scope was inserted into the patient's mouth and hypopharynx ,the esophagus is identified intubated and insufflated, the scope was then advanced through the esophagus stomach and duodenum ,retroflexion maneuver is done, the esophagus stomach and first and second portions of the duodenum examined. PREOPERATIVE DIAGNOSIS: Abdominal pain rule out peptic ulcer disease POSTOPERATIVE DIAGNOSIS: Gastritis status post biopsy rule out Helicobacter pylori OPERATION: EGD with biopsy SURGEON: MARCY SANDERSON ANESTHESIA: LMAC TISSUE REMOVED OR ALTERED: As noted above. COMPLICATIONS: None. ESTIMATED BLOOD LOSS: None. INTRAOPERATIVE FINDINGS: As noted above. PROCEDURE: Patient tolerated the procedure well. No immediate postprocedure complications are noted. Patient discharged in good condition. Discharge date 03/16/2019. Discharge diet: Regular. Discharge activity: Regular. 2 to 3-week follow-up to discuss findings. Patient is instructed to call the office or proceed to the emergency room should there be any further proximal questions. Wait on the pathology.
[2019-03-16 13:11] VITALS: BP 137/85
== END 2019-03-16 12:55 | disposition home or self-care (01) ==
LOC: OROUT 08:18
PROVIDERS: ATTEND Internal Medicine Gastroenterology
DX: K29.50 Unspecified chronic gastritis without bleeding (principal); B96.81 Helicobacter pylori [H. pylori] as the cause of diseases classified elsewhere; I10 Essential (primary) hypertension; I49.9 Cardiac arrhythmia, unspecified; Z79.899 Other long term (current) drug therapy
CPT/HCPCS: 43239; 88342 ×2; 88305 ×2; J2704; 731

== ENCOUNTER 2019-04-05 07:19 | Emergency (ER) | payer MEDICAID ==
[2019-04-05] MEDS ORDERED: DEXAMETHASONE SOD PHOS INJ 10 MG/1 ML VIAL IM ONE (09:29)
[2019-04-05] MEDS ORDERED: KETOROLAC TROMETHAMINE 60 MG/2 ML SDV IM ONE (09:30)
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
[2019-04-05 10:06] LABS: APPEARANCE,URINE CLEAR; BILIRUBIN,URINE NEGATIVE (NEGATIVE); COLOR,URINE YELLOW; GLUCOSE, URINE NEGATIVE (NEGATIVE); KETONES,URINE NEGATIVE (NEGATIVE); LEUKOCYTE ESTERASE,URINE NEGATIVE (NEGATIVE); NITRITE,URINE NEGATIVE (NEGATIVE); PROTEIN,URINE NEGATIVE (NEGATIVE); URINE SPECIFIC GRAVITY 1.021; UROBILINOGEN,URINE NEGATIVE mg/dL (<2.0)
[2019-04-05 11:01] VITALS: BP 138/76
== END 2019-04-05 10:45 | disposition home or self-care (01) ==
LOC: ER 07:19
DX: S39.012A Strain of muscle, fascia and tendon of lower back, initial encounter (principal); M79.604 Pain in right leg; M79.605 Pain in left leg; X58.XXXA Exposure to other specified factors, initial encounter; F17.200 Nicotine dependence, unspecified, uncomplicated; I10 Essential (primary) hypertension
CPT/HCPCS: 99283; 96372; 81001; J1885; J1100

== ENCOUNTER 2019-04-14 01:13 | Emergency (ER) | payer MEDICAID, OTHER ==
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
--- NOTE | 2019-04-14 04:50 | RADIOLOGY REPORT (SQ) ---
EXAM: CT head without IV contrast CLINICAL DATA[place] [facility] [place]NICAL DATA: Multiple axial CT images of the brain were performed followed by sagittal and coronal reconstructed images. The CT study is performed according to ALARA (as low as reasonably achievable) or ALARA/IMAGE GENTLY, with automatic adjustment of mA and/or kV according to patient size. Performed on: 04/14/2019 at 4:19 AM Comparisons: None. FINDINGS: There is no evidence of mass, acute mass effect or midline shift. There are no acute extra-axial fluid collections. There is no evidence of acute intracranial hemorrhage. The cerebral sulci and ventricles are normal in size and configuration. There are no focal abnormal areas of increased or decreased attenuation There is no significant mucosal thickening of the paranasal sinuses. The mastoid air cells are clear. The orbital contents are grossly unremarkable. No acute osseous abnormalities are identified. There is mild left frontal scalp soft tissue swelling. IMPRESSION: 1. There is no evidence of acute intracranial pathology. 2. Mild left frontal scalp soft tissue swelling.
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
[2019-04-14 05:44] VITALS: BP 124/78
== END 2019-04-14 05:20 | disposition home or self-care (01) ==
LOC: ER 01:13
DX: S00.03XA Contusion of scalp, initial encounter (principal); R51 Headache; H53.8 Other visual disturbances; V47.5XXA Car driver injured in collision with fixed or stationary object in traffic accident, initial encounter; I10 Essential (primary) hypertension
CPT/HCPCS: 99283; 70450; 72125; L0120

== ENCOUNTER 2019-06-30 08:44 | Emergency (ER) | payer MEDICAID ==
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
[2019-06-30 10:12] VITALS: BP 120/85
== END 2019-06-30 10:13 | disposition home or self-care (01) ==
LOC: ER 08:44
DX: M19.90 Unspecified osteoarthritis, unspecified site (principal); Z79.1 Long term (current) use of non-steroidal anti-inflammatories (NSAID); M79.641 Pain in right hand; M79.642 Pain in left hand; M25.561 Pain in right knee; M25.562 Pain in left knee; M25.571 Pain in right ankle and joints of right foot; M25.572 Pain in left ankle and joints of left foot; R21 Rash and other nonspecific skin eruption; L29.8 Other pruritus; I10 Essential (primary) hypertension
CPT/HCPCS: 99282

== ENCOUNTER 2019-10-19 07:56 | Emergency (ER) | payer MEDICAID ==
[2019-10-19 08:01] VITALS: BP 142/85
== END 2019-10-19 10:35 | disposition left against medical advice (07) ==
LOC: ER 07:56
DX: Z53.21 Procedure and treatment not carried out due to patient leaving prior to being seen by health care provider (principal)

== ENCOUNTER 2019-10-20 09:31 | Emergency (ER) | payer MEDICAID ==
[2019-10-20] MEDS ORDERED: LIDOCAINE 1% INJ-PF (10 MG/ML) 30 ML SDV INJ ONE (09:45)
[2019-10-20] MEDS ORDERED: DIPH/PERTUSS(ACELL)/TETANUS VAC/PF 0.5 ML SYR (>=10YO) IM ONE (09:49)
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
[2019-10-20 10:49] VITALS: BP 138/96
--- NOTE | 2019-10-20 10:49 | RADIOLOGY REPORT (SQ) ---
EXAM DESCRIPTION: FINGER LEFT COMPLETED DATE/TIME: 10/20/2019 9:58 am REASON FOR STUDY: 3rd finger, r/o fb COMPARISON: None. NUMBER OF VIEWS: Three views. TECHNIQUE: AP, lateral, and oblique images acquired of the left third finger. LIMITATIONS: None. FINDINGS: MINERALIZATION: Normal. BONES: No acute fracture or dislocation. No worrisome bone lesions. SOFT TISSUES: No soft tissue swelling. No foreign body. OTHER: Punctate metallic foreign body in the soft tissues along the base of the left 2nd finger proxi mal phalanx. IMPRESSION: NO RADIOGRAPHIC EVIDENCE OF ACUTE INJURY. TECHNICAL DOCUMENTATION: JOB ID: [id number] [employer]- All Rights Reserved Reading location - IP/workstation name: [email or web address]
== END 2019-10-20 10:53 | disposition home or self-care (01) ==
LOC: ER 09:31
DX: L03.012 Cellulitis of left finger (principal); M79.645 Pain in left finger(s); R10.84 Generalized abdominal pain; I10 Essential (primary) hypertension; Z23 Encounter for immunization
CPT/HCPCS: 87070; 87205; 90471; 90715; 99283

== ENCOUNTER → 2020-05-24 | Outpatient (CLI) | payer MEDICAID ==
--- NOTE | 2020-05-24 12:29 | RADIOLOGY REPORT (SQ) ---
EXAM DESCRIPTION: U/S SCROTUM W/O DOPPLER IMAGES COMPLETED DATE/TIME: 05/24/2020 10:37 am REASON FOR STUDY: N50.89 OTHER SPECIFIED DISORDERS OF THE MALE GENITAL ORGANS N50.89 OTHER SPECIFIE D DISORDERS OF THE MALE GENITAL ORGANS COMPARISON: None. TECHNIQUE: Static and realtime herrera scale imaging of the scrotum and testes. Selected color Doppler and spectral images recorded to document blood flow. LIMITATIONS: None. FINDINGS: RIGHT: TESTICLE: Normal size. Normal echotexture. Normal blood flow. No mass. EPIDIDYMIS: Normal. HYDROCELE OR VARICOCELE: No. HERNIA OR EXTRA-TESTICULAR MASS: No. OTHER: No other significant finding. LEFT: TESTICLE: Normal size. Normal echotexture. Normal blood flow. No mass. EPIDIDYMIS: Normal. HYDROCELE OR VARICOCELE: No. HERNIA OR EXTRA-TESTICULAR MASS: No. OTHER: No other significant finding. IMPRESSION: NORMAL SCROTAL ULTRASOUND. NO EVIDENCE OF TESTICULAR MASS OR TORSION. TECHNICAL DOCUMENTATION: JOB ID: [id number] 2010 [email or web address]- All Rights Reserved Reading location - IP/workstation name: [email or web address]
== END ==
LOC: RAD 09:49
PROVIDERS: ATTEND Nurse Practitioner Family
DX: N50.89 Other specified disorders of the male genital organs (principal)
CPT/HCPCS: 76870

== ENCOUNTER → 2020-06-14 | Outpatient (CLI) | payer MEDICAID ==
--- NOTE | 2020-06-14 16:07 | RADIOLOGY REPORT (SQ) ---
EXAM DESCRIPTION: FINGERS RIGHT IMAGES COMPLETED DATE/TIME: 06/14/2020 1:46 pm REASON FOR STUDY: PAIN IN RIGHT FINGER(S) M79.644 PAIN IN RIGHT FINGER(S) COMPARISON: None. NUMBER OF VIEWS: Three views. TECHNIQUE: AP, lateral, and oblique images acquired of the right fifth finger. LIMITATIONS: None. FINDINGS: MINERALIZATION: Normal. BONES: Avulsion fracture extensor process base of distal phalanx. SOFT TISSUES: No foreign body. OTHER: No other significant finding. IMPRESSION: Fracture extensor process distal phalanx. COMMENT: SITE OF TRAUMA/COMPLAINT MARKED/STAMP COMPLETED: NOT APPLICABLE. TECHNICAL DOCUMENTATION: JOB ID: [id number] 2010 [email or web address]- All Rights Reserved Reading location - IP/workstation name: [email or web address]
== END ==
LOC: OD 13:32
PROVIDERS: ATTEND Nurse Practitioner Acute Care
DX: S62.636A Displaced fracture of distal phalanx of right little finger, initial encounter for closed fracture (principal); M79.644 Pain in right finger(s); X58.XXXA Exposure to other specified factors, initial encounter